=== PATIENT | male | born 1930 | race Caucasian/White ===

== ENCOUNTER 2017-10-31 19:17 | Emergency (ER) | END 2017-10-31 22:19 | disposition home or self-care (01) ==

== ENCOUNTER 2017-12-05 13:02 | Emergency (ER) | END 2017-12-05 19:38 | disposition home or self-care (01) ==

== ENCOUNTER 2017-12-13 10:37 | Inpatient (IN) | END 2017-12-24 18:05 | disposition home health service (06) | DRG 607 ==

== ENCOUNTER 2018-04-18 14:52 | Inpatient (IN) | END 2018-04-23 18:30 | disposition home health service (06) | DRG 204 ==

== ENCOUNTER 2019-01-16 10:33 | Inpatient (IN) | payer MEDICARE, BC ==
[~2019-01-16] VITALS: Ht 180.3 cm; Wt 85.5 kg
[~2019-01-16 10:33] MED LIST: ATOR40TA68 PO; LOPE2CAP PO; MYCO500T PO; PANT40TA3 PO; PRED5TAB PO; WHEA1POW8 PO
[2019-01-16] MEDS ORDERED: SODIUM CHLORIDE 0.9% 1L BAG IV* STA (10:41)
[2019-01-16] MEDS ORDERED: ACETAMINOPHEN 325 MG TAB PO STA (10:41)
[2019-01-16] MEDS ORDERED: CEFEPIME 2GM/50 ML (PMX) 50 ML IVPB STA (10:41)
[2019-01-16] MEDS ORDERED: VANCOMYCIN 1 GM (PMX) 250 ML IVPB ONE (11:00)
[2019-01-16] MEDS ORDERED: ATOR40TA68 PO (11:25)
[2019-01-16] MEDS ORDERED: LOPE-123 PO (11:25)
[2019-01-16] MEDS ORDERED: MYCO500T PO (11:27)
[2019-01-16] MEDS ORDERED: PRED5TAB PO (11:27)
[2019-01-16] MEDS ORDERED: PANT40TA4 PO (11:28)
[2019-01-16] MEDS ORDERED: IBUPROFEN 800 MG TAB PO ONE (11:30)
[2019-01-16] MEDS ORDERED: ONDANSETRON 4 MG INJ IV PRN ×2 (14:30→16:30)
--- NOTE | 2019-01-16 14:45 | ERD ---
ER Documentation Chief Complaint Chief Complaint VISHNU FROM HOME D/T TREMBLING W/ ONSET 20 MINUTES AGO HPI This is an 88-year-old male with a past medical history of bladder carcinoma, urethral transitional cell cancer, hypertension, coronary artery disease. The patient has a history of psoriatic arthritis. The patient has a history of chronic renal failure but is not on dialysis. He has had a history of small bowel angiodysplasias that were treated with push enteroscopy at [facility]. The patient had a colostomy bag since 2006. The patient presents to the emergency department today as he states he had a tactile fever with shaking and chills just prior to arrival. He denies a productive or nonproductive cough . He has no chest pain. He has no shortness of breath at rest or exertion. He does have a left-sided urethral stent in place and his urologist is Dr. Gramajo. He indicates he is currently waiting to have this removed. The stent has been placed since November 2018. The patient has not been on any recent antibiotics. He denies any abdominal pain. He has no shortness of breath at rest or exertion. He did not take any antipyretics prior to arrival. The patient also has known history of anemia of chronic disease and has been undergoing iron supplementation. He denies any hemoptysis hematemesis or melanotic stools. He states that tactile fever shaking chills occurred roughly 20 minutes prior to arrival. ROS All systems reviewed and are negative except as per history of present illness. Medications Home Meds Reported Medications Pantoprazole* (Pantoprazole*) 40 Mg Tablet.dr, 40 MG PO AC BREAKFAST, TAB 01/16/19 Prednisone* (Prednisone*) 5 Mg Tab, 5 MG PO DAILY, TAB 01/16/19 Mycophenolate Mofetil* (Cellcept*) 500 Mg Tablet, 500 MG PO TID, #60 TAB 01/16/19 Atorvastatin* (Atorvastatin*) 40 Mg Tablet, 40 MG PO QHS, #30 TAB 01/16/19 Loperamide Hcl* (Loperamide Hcl*) 2 Mg Cap, 2 MG PO NEEDED, CAP WITH EACH DIARRHEA,PRN 01/16/19 Discontinued Reported Medications Loperamide Hcl* (Imodium*) 2 Mg Capsule, 2 MG PO .WITH EACH DIARRHEA PRN for DIARRHEA, CAP MAX 16 mg/day 04/18/18 Wheat Dextrin (Benefiber) 1 Each Powd.pack, 1 EACH PO QAM 04/18/18 Mycophenolate Mofetil* (Cellcept*) 500 Mg Tablet, 500 MG PO TID, #60 TAB 1 HR BEFORE BREAKFAST 2 HRS AFTER BREAKFAST 1 HR BEFORE OR AFTER DINNER 04/18/18 Pantoprazole* (Protonix*) 40 Mg Tablet.dr, 40 MG PO DAILY, TAB 04/18/18 Prednisone* (Prednisone*) 5 Mg Tab, 5 MG PO DAILY, TAB 12/11/17 Atorvastatin* (Atorvastatin*) 40 Mg Tablet, 40 MG PO QHS, #30 TAB 12/11/17 Allergies Allergies: Coded Allergies: acetaminophen (Unverified Allergy, Unknown, 01/16/19) hydrocodone (Unverified Allergy, Unknown, 01/16/19) hydromorphone HCl (Verified Adverse Reaction, Mild, BECAME CRAZY AND MEAN, 01/16/19) PMhx/Soc History of Surgery: Yes Anesthesia Reaction: No Hx Neurological Disorder: No Hx Respiratory Disorders: No Hx Cardiac Disorders: Yes (STENT PLACMENT 2014) Hx Psychiatric Problems: No Hx Miscellaneous Medical Probl: Yes (CA COLON, METASTAZIDE) Hx Alcohol Use: No Hx Substance Use: No Hx Tobacco Use: No Smoking Status: Never smoker Physical Exam Vitals Vital Signs Date Temp Pulse Resp B/P (MAP) Pulse Ox O2 O2 Flow FiO2 Time Delivery Rate 01/16/19 101.9 98 18 98/60 (73) 98 Room Air 13:51 01/16/19 103.0 11:55 01/16/19 Nasal 2 11:17 Cannula 01/16/19 103.0 10:55 01/16/19 103.6 90 16 170/76 99 10:36 (107) Physical Exam Constitutional:Well-developed. Well-nourished. HEENT:Normocephalic. Atraumatic.Pupils were equal round reactive to light. Moist mucous membranes.No tonsillar exudates. Neck: No nuchal rigidity. No lymphadenopathy. No posterior cervical spine tenderness or step-offs. Respiratory: Not using accessory muscles of respiration.Lungs were clear to auscultation bilaterally. No rhonchi. No rales. No wheezing. Cardiovascular: Regular rate regular rhythm.No murmurs. No rubs were appreciated.S1, S2 normal. Distal pulses are palpable 2+ bilaterally. GI: Abdomen was soft. Nontender. Colostomy bag present with mild surrounding erythremia over the abdominal wall around the colostomy site but no tenderness no fluctuance no induration. Non Distended. No pulsatile abdominal masses or bruits. No rebound. No guarding. Bowel sounds were present and normal. Muscle skeletal: Full range of motion of both the upper and lower extremities bilaterally.Normal muscle tone.No assymetrical calf tenderness or swelling. Skin: No petechia, no purpura. No lesions on the palms or the soles of the feet. No maculopapular rash. NEURO: Patient was alert, awake, orientated x3.No facial droop. Gait observed and normal with no ataxia.Speech had regular rate and rhythm. No focal neurological deficits. Result Diagram: 01/16/19 1100 01/16/19 1100 Results 24 hrs Laboratory Tests Test 01/16/19 10:53 01/16/19 11:00 01/16/19 13:21 POC Venous Lactate 5.0 mmol/L White Blood Count 4.7 10^3/ul Red Blood Count 3.18 10^6/ul Hemoglobin 10.1 g/dl Hematocrit 33.4 % Mean Corpuscular Volume 105.0 fl Mean Corpuscular Hemoglobin 31.8 pg Mean Corpuscular 30.2 g/dl Hemoglobin Concent Red Cell Distribution Width 17.2 % Platelet Count 327 10^3/UL Mean Platelet Volume 9.6 fl Immature Granulocytes % 0.600 % Neutrophils % 92.2 % Lymphocytes % 5.5 % Monocytes % 0.9 % Eosinophils % 0.4 % Basophils % 0.4 % Nucleated Red Blood Cells % 0.4 /100WBC Immature Granulocytes # 0.030 10^3/ul Neutrophils # 4.3 10^3/ul Lymphocytes # 0.3 10^3/ul Monocytes # 0.0 10^3/ul Eosinophils # 0.0 10^3/ul Basophils # 0.0 10^3/ul Nucleated Red Blood Cells # 0.0 10^3/ul Prothrombin Time 15.8 Sec Prothrombin Time Ratio 1.2 INR International 1.25 Normalized Ratio Activated Partial Thromboplast 20.7 Sec Time Sodium Level 142 mmol/L Potassium Level 4.5 mmol/L Chloride Level 113 mmol/L Carbon Dioxide Level 16 mmol/L Anion Gap 13 Blood Urea Nitrogen 44 mg/dl Creatinine 3.48 mg/dl Est Glomerular Filtrat mL/min Rate mL/min Glucose Level 129 mg/dl Calcium Level 8.9 mg/dl Total Bilirubin 0.5 mg/dl Direct Bilirubin 0.00 mg/dl Indirect Bilirubin 0.5 mg/dl Aspartate Amino 21 IU/L Transf (AST/SGOT) Alanine 10 IU/L Aminotransferase (ALT/SGPT) Alkaline Phosphatase 59 IU/L Troponin I 0.030 ng/ml Total Protein 6.9 g/dl Albumin 3.8 g/dl Globulin 3.10 g/dl Albumin/Globulin Ratio 1.22 Amylase Level 99 U/L Lipase 116 U/L Urine Color RED Urine Clarity CLOUDY Urine pH 6.0 Urine Specific [place] 1.013 Urine Ketones NEGATIVE mg/dL Urine Nitrite NEGATIVE mg/dL Urine Bilirubin NEGATIVE mg/dL Urine Urobilinogen NEGATIVE mg/dL Urine Leukocyte Esterase 1+ Leo/ul Urine Microscopic RBC > 182 /HPF Urine Microscopic WBC 102 /HPF Urine Hemoglobin 3+ mg/dL Urine Glucose NEGATIVE mg/dL Urine Total Protein 2+ mg/dl Current Medications Medications Dose Sig/Shilpi Start Time Status Last (Trade) Ordered Route PRN Stop Time Admin Dose Reason Admin Sodium 3,300 ml BOLUS OVER 2 01/16/19 DC 01/16/19 Chloride HOURS STAT 10:41 11:07 (NS) IV* 01/16/19 10:43 650 mg ONCE STAT 01/16/19 DC 01/16/19 Acetaminophen PO 10:41 10:55 (Tylenol 01/16/19 10:43 Tab) Cefepime HCl 50 ml @ ONCE STAT 01/16/19 DC 01/16/19 100 mls/hr IVPB 10:41 11:07 01/16/19 11:10 Vancomycin 250 ml @ ONCE ONCE 01/16/19 DC 01/16/19 HCl 125 mls/hr IVPB 11:00 11:55 01/16/19 12:59 Ibuprofen 800 mg ONCE ONCE 01/16/19 DC 01/16/19 (Motrin) PO 11:30 11:55 01/16/19 11:31 Ondansetron 4 mg ER BRIDGE 01/16/19 HCl (Zofran PRN IV 14:30 Inj) NAUSEA/VOMITI 01/17/19 14:29 NG Sodium 1,000 ml @ Q1H STAT 01/16/19 Chloride 1,000 mls/hr IV 14:46 01/16/19 15:45 Procedures/MDM This patient presented to the emergency department febrile with fever shaking and chills. The patient was admitted placed on athletic monitor continuous pulse oximetry IV access was established by nursing to. Patient's infectious symptoms have not stabilized and the patient is at risk of rapid decompensation. The patient will be admitted for careful hydration, antibiotic therapy, and infectious source control. Severe Sepsis Assessment: Infectious Source: Pyleonephritis End organ damage indicated by: Lactate > 2.0 mmol/L Supply Planner > 2.0 Severe Sepsis Managment: Blood Cultures X 2 before broad spectrum antibiotics initiated within 3 hours of recognition. 30 ml/kg NS bolus Completed Initial Lactate: 5.0 Repeat Lactate pending Septic Shock Assessment (1 hour post 30 ml/kg fluid bolus): Hypotension (SBP < 90 or 40 mmHg drop, MAP < 65): No Lactic acid > 4.0 Yes Perfusion Reassessment for Septic Shock: Temp 101.9, Pulse 98, RR 18, BP 98/60 Heart Exam: Normal Lung Exam: No Crackles Capillary Refill: Normal Peripheral Pulses: Radially present Skin: Normal I considered further perfusion assessment with CVP measurement, SCVO2, bedside ultrasound volume assessment, passive leg raise, trial of further fluid bolus. And preceded with IV fluids. 12 Lead EKG tracing ordered and reviewed by myself showed: Sinus tachycardia 106 bpm and no arrhythmia. NC interval normal. QRS duration normal. No ST segment elevation No ST segment depression. No changes consistent with acute ischemia. The patient has been seen and evaluated previously in the emergency department by his primary care's physician Dr. Calix. Multiple calls were placed however were unable to get hold of Dr. White. Therefore the patient will be admitted to the hospitalist. Patient will go to the telemetry service in serious condition. I will place a call to Dr. Harrison to see if he be willing to be consulted on the case. Critical Care: Time: 65 minutes Treatments/Evaluations: Close monitoring and treatment of unstable vital signs, cardiorespiratory, and neurologic status, while maintaining tight balance of fluid, respiratory, and cardiac interventions. Time does not include performing any of the above billable procedures. Departure Diagnosis: Primary Impression: Severe sepsis Additional Impression: Retained urethral stent Condition: Serious Comments Addendum: Time: 15:00. Case discussed with Dr. Schilling. Will admit to telemetry for Dr. Calix. BISHOP WU MD Jan 16, 2019 14:36 YARELY RIOS MD Jan 16, 2019 15:02
[2019-01-16] MEDS ORDERED: SOD CHLORIDE 0.9% 1,000 ML IV STA (14:46)
[2019-01-16 16:15] VITALS: BP 100/51; PULSE 104; RESP 18
[2019-01-16 16:27] VITALS: Ht 180.3 cm; Wt 85.5 kg
[2019-01-16] MEDS ORDERED: MAGNESIUM HYDROXIDE 30ML CUP PO PRN (16:30)
[2019-01-16] MEDS ORDERED: ZOLPIDEM 5 MG TAB PO PRN (16:30)
[2019-01-16] MEDS ORDERED: NACL 0.9% 3 ML SYG IV SCH (16:30)
[2019-01-16] MEDS ORDERED: IBUPROFEN 400 MG TAB PO PRN (16:30)
[2019-01-16] MEDS ORDERED: LOPERAMIDE 2 MG CAP PO PRN (16:30)
[2019-01-16] MEDS ORDERED: VANCOMYCIN 500 MG (PMX) 100 ML IVPB SCH (18:30)
[2019-01-16] MEDS ORDERED: VANCOMYCIN IV PER PHARMACY XX SCH (18:30)
[2019-01-16] MEDS: SOD CHLORIDE 0.9% 1,000 ML IV SCH (18:31)
[2019-01-16 19:51] VITALS: BP 116/60; PULSE 99; RESP 20
[2019-01-16 20:30] VITALS: PULSE 96
[2019-01-16] MEDS ORDERED: NITROFURANTOIN (SR) 100 MG CAP PO SCH (21:00)
[2019-01-16] MEDS: FAMOTIDINE 20 MG INJ IV SCH (21:34)
[2019-01-16] MEDS: CLOTRIMAZOLE 1% 30 GM CR TOP SCH (21:34)
[2019-01-16] MEDS: MYCOPHENOLATE 250 MG CAP PO SCH (21:35)
[2019-01-16] MEDS: ATORVASTATIN 40 MG TAB PO SCH (21:36)
--- NOTE | 2019-01-16 23:02 | HP ---
DATE OF ADMISSION: 01/16/2019 REQUESTING PHYSICIAN: Dr. Schilling REASON FOR CONSULTATION: History of bladder tumor and left ureteral JJ stent. HISTORY OF PRESENT ILLNESS: This is an 88-year-old male who presented to [facility] with a fever of 103 and chills. The patient is known to have a history of bladder cancer and has undergone resection of this cancer and also it appears he may have had obstruction of his left ureter and had a JJ stent put in about [address] Gramajo. The patient was supposed to go and see Dr. Gramajo to undergo a cystoscopy and removal of the stent. The patient's other medical problems include a history of hypertension, history of coronary artery disease status post stent. Patient does have a history of psoriatic arthritis, history of chronic kidney disease stage IV, but It appears his kidney function has improved. Also, he has had a history of colostomy and has a skin problem. 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 He also does have a history of anemia. He still is able to urinate on his own and his urine is clear. He denies any dysuria or gross hematuria. Upon admission to the hospital, he underwent a CT scan of the abdomen and pelvis and that showed that he does have mild left hydroureter and hydronephrosis with a double-J ureteral stent. There is left renal cyst and atrophic left kidney. 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 He does have a 5 cm focal fluid collection interposed between the left ischial tuberosity and the gluteus muscle without bony destruction, question ischial gluteal bursitis, abscess cannot be ruled out. ALLERGIES: 1. ACETAMINOPHEN. 2. HYDROCODONE. 3. HYDROMORPHONE. PAST MEDICAL HISTORY: He has had a skin disease problem and has been to a congressional assistant and was treated for that. He does have a colostomy from bowel resection. PHYSICAL EXAMINATION: GENERAL: Reveals an elderly male. VITAL SIGNS: Temperature is now 100.8, on admission it was 103.0. The blood pressure 105/60, respiration 20, pulse rate is 98. HEAD AND NECK: Unremarkable. CHEST: Clear. ABDOMEN: Soft. There is no abdominal mass palpable. The patient does have a colostomy and he does have a lot of skin rash on his abdomen. GENITALIA: The glans penis is red and consistent with balanitis LABORATORY DATA: CBC shows a white count of 4.7, hemoglobin 10.1, hematocrit 33.4. The BUN is 44, creatinine 3.48. The urinalysis is 1+ leukocyte esterase, 182 per high-power field red cells, and 102 white cells per high power-field as well. IMPRESSION: History of bladder tumor and left ureteral JJ stent Balanitis, Urinary tract infection,possible bacteremia Plan: Blood and urine cultures ,Lotrimin cream on the balanitis, IV antibiotics. Once The UTI is cleared then he may go and see Dr Gramajo to manage his JJ stent Dictated By: ALEX ROBLERO/EDUARDO Conf#: [id number] DID#: [id number] MTDD
[2019-01-16 23:50] VITALS: BP 114/64; PULSE 91; RESP 20
[2019-01-17] MEDS: SOD CHLORIDE 0.9% 1,000 ML IV SCH ×3 (05:50→23:29)
[2019-01-17 08:27] VITALS: BP 115/61; PULSE 104; RESP 16
[2019-01-17] MEDS ORDERED: predniSONE 5 MG TAB PO SCH (09:00)
[2019-01-17] MEDS: MYCOPHENOLATE 250 MG CAP PO SCH ×3 (09:06→17:02)
[2019-01-17] MEDS: CLOTRIMAZOLE 1% 30 GM CR TOP SCH ×2 (09:06→20:49)
[2019-01-17 12:04] VITALS: BP 114/66; PULSE 107; RESP 18
[2019-01-17 15:35] VITALS: BP 108/61; PULSE 110; RESP 16
[2019-01-17] MEDS: predniSONE 5 MG TAB PO SCH (17:02)
--- NOTE | 2019-01-17 17:03 | HP ---
Date/Time of Note Date/Time of Note DATE: 01/17/19 TIME: 16:46 Assessment/Plan VTE [place] [facility] [place]: 6 [place] [facility] [place] SCD contraindicated: other Pharmacological prophylaxis: other Pharm contraindication: other Lines/Catheters [facility] Sal[place] Central line still needed: No Urinary Cath still in place: No Assessment/Plan Problems: (1) Severe sepsis Status: Acute Comment: IV antibiotics. Hydration. Follow up on cultures. (2) Ureter obstruction Status: Acute Comment: Possible stent obstruction. Appreciate Dr. Harrison participation in this case. Result Diagram: 01/17/19 0743 01/17/19 0743 Results 24hrs Laboratory Tests Test 01/16/19 18:42 01/17/19 07:43 Lactic Acid Level 1.6 White Blood Count 15.3 #H Red Blood Count 3.13 L Hemoglobin 9.8 L Hematocrit 33.8 L Mean Corpuscular Volume 108.0 H Mean Corpuscular Hemoglobin 31.3 Mean Corpuscular Hemoglobin Concent 29.0 L Red Cell Distribution Width 17.5 H Platelet Count 279 Mean Platelet Volume 10.6 H Immature Granulocytes % 0.500 H Neutrophils % 90.0 H Lymphocytes % 2.2 L Monocytes % 6.1 Eosinophils % 0.8 Basophils % 0.4 Nucleated Red Blood Cells % 0.0 Immature Granulocytes # 0.080 H Neutrophils # 13.8 H Lymphocytes # 0.3 L Monocytes # 0.9 Eosinophils # 0.1 Basophils # 0.1 Nucleated Red Blood Cells # 0.0 Sodium Level 141 Potassium Level 4.5 Chloride Level 118 H Carbon Dioxide Level 15 L Anion Gap 8 Blood Urea Nitrogen 44 H Creatinine 2.95 H Est Glomerular Filtrat Rate mL/min Glucose Level 84 # Calcium Level 8.4 Total Bilirubin 0.5 Direct Bilirubin 0.00 Indirect Bilirubin 0.5 Aspartate Amino Transf (AST/SGOT) 21 Alanine Aminotransferase (ALT/SGPT) 17 Alkaline Phosphatase 47 Total Protein 5.7 #L Albumin 2.9 L Globulin 2.80 Albumin/Globulin Ratio 1.03 HPI/ROS Admit Date/Time Admit Date/Time Jan 16, 2019 at 15:46 Hx of Present Illness 88 year old man in usual state of health began to experience sudden onset of rigors.Brought in to [facility] by ambulance. Found to have a temperature of 103 Fahrenheit. Blood and urine cultures sent. Started on IV antibiotics. Imaging of kidney showing a possibly obstructed stent with hydroureternephrosis. admitted to telemetry for urosepsis with ureter/stent obstruction PMH/Family/Social Past Medical History SOCIAL HISTORY: The patient has been a cigarette smoker up until the last few years when he has probably mostly stopped. 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 He does not drink alcohol. The patient was born in [place]. He is and there are 2 grown children. Medical History: cancer (bladder, transitional urethral carcinoma, perianal melanoma), congestive heart failure, coronary artery disease, GI bleed, high ch olesterol, renal disease (nephrolithiasis), other (rheumatoid arthritis, autoimmune bullous disease of the skin) Medications Current Medications Sodium Chloride 1,000 ml @ 75 mls/hr [id number] IV Last administered on 01/17/19at 09:06; Admin Dose 75 MLS/HR; Start 01/16/19 at 16:30 IV Flush (NS 3 ml) 3 ml PER PROTOCOL IV ; Start 01/16/19 at 16:30 Ondansetron HCl (Zofran Inj) 4 mg Q6H PRN IV NAUSEA/VOMITING; Start 01/16/19 at 16:30 Zolpidem Tartrate (Ambien) 5 mg QHS PRN PO .INSOMNIA; Start 01/16/19 at 16:30 Magnesium Hydroxide (Milk Of Mag) 30 ml DAILY PRN PO .CONSTIPATION; Start 01/16/19 at 16:30 Famotidine (Pepcid Iv) 20 mg Q24H IV Last administered on 01/16/19at 21:34; Admin Dose 20 MG; Start 01/16/19 at 21:00 Ibuprofen (Motrin) 400 mg Q6H PRN PO MILD PAIN(1-3) OR TEMP>38C; Start 01/16/19 at 16:30 Atorvastatin Calcium (Lipitor) 40 mg QHS PO Last administered on 01/16/19at 21:36; Admin Dose 40 MG; Start 01/16/19 at 21:00 Loperamide HCl (Imodium Cap) 2 mg ONCE PRN PO diarrhea; Start 01/16/19 at 16:30 Mycophenolate Mofetil (Cellcept) 500 mg TID PO Last administered on 01/17/19at 12:05; Admin Dose 500 MG; Start 01/16/19 at 21:00 Clotrimazole (Lotrimin Cr) 1 applic BID TOP Last administered on 01/17/19at 09:06; Admin Dose 1 APPLIC; Start 01/16/19 at 21:00 Vancomycin HCl (Vanco Iv Per Pharmacy) PER PHARMACY DOSING NOTE XX ; Start 01/16/19 at 18:30 Miscellaneous Information (*Rx Drug Level Order Reminder*) VANCO RANDOM @ 0,500 0500 ONCE XX ; Start 01/18/19 at 05:00; Stop 01/18/19 at 05:01 Prednisone (Prednisone) 5 mg DAILY PO ; Start 01/17/19 at 14:01 Coded Allergies: acetaminophen (Unverified Allergy, Unknown, 01/16/19) hydrocodone (Unverified Allergy, Unknown, 01/16/19) hydromorphone HCl (Verified Adverse Reaction, Mild, BECAME CRAZY AND MEAN, 01/16/19) Past Surgical History Past Surgical Hx: angioplasty, bowel resection, other (deviated septum repair, knee replacement, TURP) Family History Significant Family History: no pertinent family hx Social History with 2 grown children. Retired contractor from [place] Alcohol Use: none Smoking Status: Former smoker Drug Use: none Exam/Review of Systems Vital Signs Vitals Vital Signs Date Temp Pulse Resp B/P (MAP) Pulse Ox O2 O2 Flow FiO2 Time Delivery Rate 01/17/19 98.6 110 16 108/61 100 Room Air 15:35 (77) 01/16/19 2 11:17 Intake and Output 01/16/19 01/16/19 01/17/19 1515:00 23:00 07:00 IntakeIntake Total 250 ml OutputOutput Total 200 ml 300 ml BalanceBalance -200 ml -50 ml Exam Constitutional: alert, oriented, well developed Head: normocephalic Eyes: nl conjunctiva, EOMI, PERRL Neck: supple Respiratory: clear to auscultation, normal air movement Cardiovascular: regular rate and rhythm Gastrointestinal: soft, other (colostomy) Genitourinary - Male: nl penis, other (erythema ) Musculoskeletal: nl extremities to inspection Extremities: normal pulses Skin: other (plaques of erythema and hypopigmentation) SHERIF DAMON MD Jan 17, 2019 16:58
[2019-01-17 19:43] VITALS: BP 110/57; PULSE 110; RESP 20
--- NOTE | 2019-01-17 20:22 | CONS ---
Consult Date/Type/Reason Admit Date/Time Jan 16, 2019 at 15:46 Initial Consult Date January 16, 2019 Type of Consultation: Urology Reason for Consultation History of bladder tumor and insertion of left ureteral JJ stent. Patient came in with fever and chills Requesting Provider: SHERIF DAMON MD Date/Time of Note DATE: 01/17/19 TIME: 20:17 Subjective Patient feels better today. He has no chills and his temperature maximum is 99.1. Objective Vitals Vital Signs Date Temp Pulse Resp B/P (MAP) Pulse Ox O2 O2 Flow FiO2 Time Delivery Rate 01/17/19 99.1 110 20 110/57 97 19:43 (74) 01/17/19 Room Air 15:35 01/16/19 2 11:17 Intake and Output 01/16/19 01/16/19 01/17/19 1515:00 23:00 07:00 IntakeIntake Total 250 ml OutputOutput Total 200 ml 300 ml BalanceBalance -200 ml -50 ml Exam Patient does have colostomy and redness around it. The balanitis is better. He is using the Lotrimin cream on it. Blood cultures came back positive with gram- positive cocci. Patient is on vancomycin Results/Medications Result Diagram: 01/17/19 0743 01/17/19 0743 Results 24 hrs Laboratory Tests Test 01/17/19 07:43 White Blood Count 15.3 #H Red Blood Count 3.13 L Hemoglobin 9.8 L Hematocrit 33.8 L Mean Corpuscular Volume 108.0 H Mean Corpuscular Hemoglobin 31.3 Mean Corpuscular Hemoglobin Concent 29.0 L Red Cell Distribution Width 17.5 H Platelet Count 279 Mean Platelet Volume 10.6 H Immature Granulocytes % 0.500 H Neutrophils % 90.0 H Lymphocytes % 2.2 L Monocytes % 6.1 Eosinophils % 0.8 Basophils % 0.4 Nucleated Red Blood Cells % 0.0 Immature Granulocytes # 0.080 H Neutrophils # 13.8 H Lymphocytes # 0.3 L Monocytes # 0.9 Eosinophils # 0.1 Basophils # 0.1 Nucleated Red Blood Cells # 0.0 Sodium Level 141 Potassium Level 4.5 Chloride Level 118 H Carbon Dioxide Level 15 L Anion Gap 8 Blood Urea Nitrogen 44 H Creatinine 2.95 H Est Glomerular Filtrat Rate mL/min Glucose Level 84 # Calcium Level 8.4 Total Bilirubin 0.5 Direct Bilirubin 0.00 Indirect Bilirubin 0.5 Aspartate Amino Transf (AST/SGOT) 21 Alanine Aminotransferase (ALT/SGPT) 17 Alkaline Phosphatase 47 Total Protein 5.7 #L Albumin 2.9 L Globulin 2.80 Albumin/Globulin Ratio 1.03 Home Meds Reported Medications Pantoprazole* (Pantoprazole*) 40 Mg Tablet.dr, 40 MG PO AC BREAKFAST, TAB 01/16/19 Prednisone* (Prednisone*) 5 Mg Tab, 5 MG PO DAILY, TAB 01/16/19 Mycophenolate Mofetil* (Cellcept*) 500 Mg Tablet, 500 MG PO TID, #60 TAB 01/16/19 Atorvastatin* (Atorvastatin*) 40 Mg Tablet, 40 MG PO QHS, #30 TAB 01/16/19 Loperamide Hcl* (Loperamide Hcl*) 2 Mg Cap, 2 MG PO NEEDED, CAP WITH EACH DIARRHEA,PRN 01/16/19 Discontinued Reported Medications Loperamide Hcl* (Imodium*) 2 Mg Capsule, 2 MG PO .WITH EACH DIARRHEA PRN for DIARRHEA, CAP MAX 16 mg/day 04/18/18 Wheat Dextrin (Benefiber) 1 Each Powd.pack, 1 EACH PO QAM 04/18/18 Mycophenolate Mofetil* (Cellcept*) 500 Mg Tablet, 500 MG PO TID, #60 TAB 1 HR BEFORE BREAKFAST 2 HRS AFTER BREAKFAST 1 HR BEFORE OR AFTER DINNER 04/18/18 Pantoprazole* (Protonix*) 40 Mg Tablet.dr, 40 MG PO DAILY, TAB 04/18/18 Prednisone* (Prednisone*) 5 Mg Tab, 5 MG PO DAILY, TAB 12/11/17 Atorvastatin* (Atorvastatin*) 40 Mg Tablet, 40 MG PO QHS, #30 TAB 12/11/17 Medications Current Medications Sodium Chloride 1,000 ml @ 75 mls/hr [id number] IV Last administered on 01/17/19at 09:06; Admin Dose 75 MLS/HR; Start 01/16/19 at 16:30 IV Flush (NS 3 ml) 3 ml PER PROTOCOL IV ; Start 01/16/19 at 16:30 Ondansetron HCl (Zofran Inj) 4 mg Q6H PRN IV NAUSEA/VOMITING; Start 01/16/19 at 16:30 Zolpidem Tartrate (Ambien) 5 mg QHS PRN PO .INSOMNIA; Start 01/16/19 at 16:30 Magnesium Hydroxide (Milk Of Mag) 30 ml DAILY PRN PO .CONSTIPATION; Start 01/16/19 at 16:30 Famotidine (Pepcid Iv) 20 mg Q24H IV Last administered on 01/16/19at 21:34; Admin Dose 20 MG; Start 01/16/19 at 21:00 Ibuprofen (Motrin) 400 mg Q6H PRN PO MILD PAIN(1-3) OR TEMP>38C; Start 01/16/19 at 16:30 Atorvastatin Calcium (Lipitor) 40 mg QHS PO Last administered on 01/16/19at 21:36; Admin Dose 40 MG; Start 01/16/19 at 21:00 Loperamide HCl (Imodium Cap) 2 mg ONCE PRN PO diarrhea; Start 01/16/19 at 16:30 Mycophenolate Mofetil (Cellcept) 500 mg TID PO Last administered on 01/17/19at 17:02; Admin Dose 500 MG; Start 01/16/19 at 21:00 Clotrimazole (Lotrimin Cr) 1 applic BID TOP Last administered on 01/17/19at 09:06; Admin Dose 1 APPLIC; Start 01/16/19 at 21:00 Vancomycin HCl (Vanco Iv Per Pharmacy) PER PHARMACY DOSING NOTE XX ; Start 01/16/19 at 18:30 Miscellaneous Information (*Rx Drug Level Order Reminder*) VANCO RANDOM @ 0,500 0500 ONCE XX ; Start 01/18/19 at 05:00; Stop 01/18/19 at 05:01 Prednisone (Prednisone) 5 mg DAILY PO Last administered on 01/17/19at 17:02; Admin Dose 5 MG; Start 01/17/19 at 14:01 Assessment/Plan Hospital Course (Demo Recall) 88-year-old male presented to the hospital with chills and fever of 103. He does have a history of bladder tumor status post resection and insertion of left ureteral JJ stent. His blood culture did grow gram-positive cocci. The patient is on vancomycin. He is feeling better and he is voiding well. His urine is clear. His white count did go up to 15.3 and that is because of the sepsis. His creatinine has improved and came down to 2.95 from 3.48 For now we shall continue the vancomycin pending the result of the urine culture and the sensitivity on the blood culture. Continue the Lotrimin cream on the balanitis. ALEX PARR MD Jan 17, 2019 20:22
[2019-01-17] MEDS: FAMOTIDINE 20 MG INJ IV SCH (20:49)
[2019-01-17] MEDS: ATORVASTATIN 40 MG TAB PO SCH (20:49)
[2019-01-18 00:21] VITALS: BP 113/68; PULSE 102; RESP 20
[2019-01-18 04:10] VITALS: BP 125/76; PULSE 109; RESP 21
[2019-01-18 07:28] VITALS: BP 127/75; PULSE 100; RESP 18
[2019-01-18] MEDS: predniSONE 5 MG TAB PO SCH (09:23)
[2019-01-18] MEDS: MYCOPHENOLATE 250 MG CAP PO SCH ×3 (09:23→20:27)
[2019-01-18] MEDS: CLOTRIMAZOLE 1% 30 GM CR TOP SCH ×2 (09:23→20:27)
[2019-01-18] MEDS ORDERED: VANCOMYCIN HCL 1.5 GM in SOD CHLORIDE 0.9% 250 ML IVPB ONE (11:00)
[2019-01-18 11:55] VITALS: BP 144/83; PULSE 110; RESP 18
--- NOTE | 2019-01-18 13:09 | PN ---
Date/Time of Note Date/Time of Note DATE: 01/18/19 TIME: 13:01 Assessment/Plan VTE Prophylaxis Risk score (from Ns)>0 risk: 5 SCD applied (from Ns): No SCD contraindicated: patient refusal (j stent in place, recent massive gi bled) Pharmacological prophylaxis: NA/contraindicated Pharm contraindication: low risk/ambulating Lines/Catheters IV C[facility]ter Type (from [facility]): Peripheral IV Urinary Cath still in place: No Assessment/Plan Result Diagram: 01/17/19 0743 01/17/19 0743 Results 24hrs Laboratory Tests Test 01/18/19 05:11 Random Vancomycin Level 6.4 Subjective 24 Hr Interval Summary Free Text/Dictation 88 yr old man with multiple medical problems. presented with fever chills, some recal discomfort. wbc is up, chr anemia.cultures poss staph in blood, urine no infection. 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 ct findings noted, no pain over ischial area. await culture results. will ask dr jeong to see him Constitutional: improved Exam/Review of Systems Exam Vitals Vital Signs Date Temp Pulse Resp B/P (MAP) Pulse Ox O2 O2 Flow FiO2 Time Delivery Rate 01/18/19 98.0 110 18 144/83 98 11:55 (103) 01/17/19 Room Air 15:35 01/16/19 2 11:17 Intake and Output 01/17/19 01/17/19 01/18/19 1515:00 23:00 07:00 IntakeIntake Total 560 ml 480 ml 1150 ml OutputOutput Total 700 ml 350 ml BalanceBalance 560 ml -220 ml 800 ml Results Results 24hrs Laboratory Tests Test 01/18/19 05:11 Random Vancomycin Level 6.4 Medications Medication Current Medications Sodium Chloride 1,000 ml @ 75 mls/hr [id number] IV Last administered on 01/17/19 23:29; Admin Dose 75 MLS/HR; Start 01/16/19 at 16:30 IV Flush (NS 3 ml) 3 ml PER PROTOCOL IV ; Start 01/16/19 at 16:30 Ondansetron HCl (Zofran Inj) 4 mg Q6H PRN IV NAUSEA/VOMITING; Start 01/16/19 at 16:30 Zolpidem Tartrate (Ambien) 5 mg QHS PRN PO .INSOMNIA; Start 01/16/19 at 16:30 Magnesium Hydroxide (Milk Of Mag) 30 ml DAILY PRN PO .CONSTIPATION; Start 01/16/19 at 16:30 Famotidine (Pepcid Iv) 20 mg Q24H IV Last administered on 01/17/19 20:49; Admin Dose 20 MG; Start 01/16/19 at 21:00 Ibuprofen (Motrin) 400 mg Q6H PRN PO MILD PAIN(1-3) OR TEMP>38C; Start 01/16/19 at 16:30 Atorvastatin Calcium (Lipitor) 40 mg QHS PO Last administered on 01/17/19 20:49; Admin Dose 40 MG; Start 01/16/19 at 21:00 Loperamide HCl (Imodium Cap) 2 mg ONCE PRN PO diarrhea; Start 01/16/19 at 16:30 Mycophenolate Mofetil (Cellcept) 500 mg TID PO Last administered on 01/18/19 12:25; Admin Dose 500 MG; Start 01/16/19 at 21:00 Clotrimazole (Lotrimin Cr) 1 applic BID TOP Last administered on 01/18/19 09:23; Admin Dose 1 APPLIC; Start 01/16/19 at 21:00 Vancomycin HCl (Vanco Iv Per Pharmacy) PER PHARMACY DOSING NOTE XX ; Start 01/16/19 at 18:30 Prednisone (Prednisone) 5 mg DAILY PO Last administered on 01/18/19 09:23; Admin Dose 5 MG; Start 01/17/19 at 14:01 Vancomycin HCl 1.5 gm/Sodium Chloride 250 ml @ 83.333 mls/ hr ONCE ONCE IVPB Last administered on 01/18/19 12:26; Admin Dose 83.333 MLS/HR; Start 01/18/19 at 11:00; Stop 01/18/19 at 13:59 MAIDA WATERS MD 15, 2019 13:09
[2019-01-18 16:15] VITALS: BP 138/79; PULSE 82; RESP 18
--- NOTE | 2019-01-18 19:08 | CONS ---
Consult Date/Type/Reason Admit Date/Time Jan 16, 2019 at 15:46 Initial Consult Date January 16, 2019 Type of Consultation: Urology Reason for Consultation Urinary tract infection, history of bladder tumor and insertion of left ureteral JJ stent Requesting Provider: SHERIF DAMON MD Date/Time of Note DATE: 01/18/19 TIME: 19:03 Subjective Patient is feeling better. He however complains of rectal discharge today with the air coming through the rectum. Objective Vitals Vital Signs Date Temp Pulse Resp B/P (MAP) Pulse Ox O2 O2 Flow FiO2 Time Delivery Rate 01/18/19 98.0 82 18 138/79 98 16:15 (98) 01/17/19 Room Air 15:35 01/16/19 2 11:17 Intake and Output 01/17/19 01/17/19 01/18/19 1515:00 23:00 07:00 IntakeIntake Total 560 ml 480 ml 1150 ml OutputOutput Total 700 ml 350 ml BalanceBalance 560 ml -220 ml 800 ml Exam Colostomy and redness on the abdominal wall. Balanitis is improving. Urine culture showing: STAPHYLOCOCCUS SPECIES <10,000 CFU/ml Results/Medications Result Diagram: 01/17/19 0743 01/17/19 0743 Results 24 hrs Laboratory Tests Test 01/18/19 05:11 Random Vancomycin Level 6.4 Home Meds Reported Medications Pantoprazole* (Pantoprazole*) 40 Mg Tablet.dr, 40 MG PO AC BREAKFAST, TAB 01/16/19 Prednisone* (Prednisone*) 5 Mg Tab, 5 MG PO DAILY, TAB 01/16/19 Mycophenolate Mofetil* (Cellcept*) 500 Mg Tablet, 500 MG PO TID, #60 TAB 01/16/19 Atorvastatin* (Atorvastatin*) 40 Mg Tablet, 40 MG PO QHS, #30 TAB 01/16/19 Loperamide Hcl* (Loperamide Hcl*) 2 Mg Cap, 2 MG PO NEEDED, CAP WITH EACH DIARRHEA,PRN 01/16/19 Discontinued Reported Medications Loperamide Hcl* (Imodium*) 2 Mg Capsule, 2 MG PO .WITH EACH DIARRHEA PRN for DIARRHEA, CAP MAX 16 mg/day 04/18/18 Wheat Dextrin (Benefiber) 1 Each Powd.pack, 1 EACH PO QAM 04/18/18 Mycophenolate Mofetil* (Cellcept*) 500 Mg Tablet, 500 MG PO TID, #60 TAB 1 HR BEFORE BREAKFAST 2 HRS AFTER BREAKFAST 1 HR BEFORE OR AFTER DINNER 04/18/18 Pantoprazole* (Protonix*) 40 Mg Tablet.dr, 40 MG PO DAILY, TAB 04/18/18 Prednisone* (Prednisone*) 5 Mg Tab, 5 MG PO DAILY, TAB 12/11/17 Atorvastatin* (Atorvastatin*) 40 Mg Tablet, 40 MG PO QHS, #30 TAB 12/11/17 Medications Current Medications Sodium Chloride 1,000 ml @ 75 mls/hr [id number] IV Last administered on 01/17/19 23:29; Admin Dose 75 MLS/HR; Start 01/16/19 at 16:30 IV Flush (NS 3 ml) 3 ml PER PROTOCOL IV ; Start 01/16/19 at 16:30 Ondansetron HCl (Zofran Inj) 4 mg Q6H PRN IV NAUSEA/VOMITING; Start 01/16/19 at 16:30 Zolpidem Tartrate (Ambien) 5 mg QHS PRN PO .INSOMNIA; Start 01/16/19 at 16:30 Magnesium Hydroxide (Milk Of Mag) 30 ml DAILY PRN PO .CONSTIPATION; Start 01/16/19 at 16:30 Famotidine (Pepcid Iv) 20 mg Q24H IV Last administered on 01/17/19 20:49; Admin Dose 20 MG; Start 01/16/19 at 21:00 Ibuprofen (Motrin) 400 mg Q6H PRN PO MILD PAIN(1-3) OR TEMP>38C; Start 01/16/19 at 16:30 Atorvastatin Calcium (Lipitor) 40 mg QHS PO Last administered on 01/17/19 20:49; Admin Dose 40 MG; Start 01/16/19 at 21:00 Loperamide HCl (Imodium Cap) 2 mg ONCE PRN PO diarrhea; Start 01/16/19 at 16:30 Mycophenolate Mofetil (Cellcept) 500 mg TID PO Last administered on 01/18/19 12:25; Admin Dose 500 MG; Start 01/16/19 at 21:00 Clotrimazole (Lotrimin Cr) 1 applic BID TOP Last administered on 01/18/19 09:23; Admin Dose 1 APPLIC; Start 01/16/19 at 21:00 Vancomycin HCl (Vanco Iv Per Pharmacy) PER PHARMACY DOSING NOTE XX ; Start 01/16/19 at 18:30 Prednisone (Prednisone) 5 mg DAILY PO Last administered on 01/18/19at 09:23; Admin Dose 5 MG; Start 01/17/19 at 14:01 Assessment/Plan Hospital Course (Demo Recall) 88-year-old male presented to the hospital with chills and fever of 103. He does have a history of bladder tumor status post resection and insertion of left ureteral JJ stent. His blood culture did grow gram-positive cocci and his urine did grow the same. The patient is on vancomycin. He is feeling better and he is voiding well. His urine is clear. He complained today of rectal discharge and feeling of gas coming through the rectum. His white count did go up to 15.3 and that is because of the sepsis. His creatinine has improved and came down to 2.95 from 3.48 For now we shall continue the vancomycin. Continue the clotrimazole for the balanitis. Colorectal surgery consultation. ALEX PARR MD Jan 18, 2019 19:07
[2019-01-18] MEDS: FAMOTIDINE 20 MG INJ IV SCH (20:27)
[2019-01-18] MEDS: ATORVASTATIN 40 MG TAB PO SCH (20:27)
[2019-01-18] MEDS: SOD CHLORIDE 0.9% 1,000 ML IV SCH (20:33)
[2019-01-18 20:39] VITALS: BP 170/76; PULSE 61; RESP 16
[2019-01-19] VITALS (8 sets, daily range): BP systolic 137–172; BP diastolic 63–88; PULSE 54–90; RESP 16–18
[2019-01-19] MEDS: predniSONE 5 MG TAB PO SCH (08:27)
[2019-01-19] MEDS: CLOTRIMAZOLE 1% 30 GM CR TOP SCH ×2 (08:28→20:29)
--- NOTE | 2019-01-19 08:38 | PN ---
Date/Time of Note Date/Time of Note DATE: 01/19/19 TIME: 08:35 Assessment/Plan VTE Prophylaxis Risk score (from [facility]0 risk: 5 SCD applied (from [facility] [place] No SCD contraindicated: low risk/ambulating Pharmacological prophylaxis: heparin Pharm contraindication: low risk/ambulating Lines/Catheters [facility] IV Urinary Cath still in place: No Assessment/Plan Problems: (1) Severe sepsis Status: Acute Comment: He is significantly improved with IV antibiotic therapy. Dosage of vancomycin being guided with our colleagues in pharmacy. Continue treatment. Please note there was staph in the urine however it was a very low colony count less than 10,000 staph epidermidis. Of more concern is that 2 out of 2 blood cultures have staph species in them (2) Psoriatic arthritis Status: Chronic Comment: Continue with CellCept (3) Essential hypertension Status: Chronic Comment: Adequate control at this time (4) Hyperlipidemia Status: Chronic Comment: Continue with statin therapy (5) CKD (chronic kidney disease) stage 3, GFR 30-59 ml/min Status: Chronic Comment: Noted his kidney function was worse on admission but is now improving. (6) Transitional cell carcinoma, bladder Status: Chronic Comment: Stable and he has a left-sided double-J stent. 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 Will check the appropriate labs just to be on the safe side Qualifiers: Chronic kidney disease stage: stage 4 (severe) Qualified Codes: N18.4 - Chronic kidney disease, stage 4 (severe); D63.1 - Anemia in chronic kidney disease Result Diagram: 01/19/19 0520 01/19/19 0520 Results 24hrs Laboratory Tests Test 01/19/19 05:20 White Blood Count 8.7 # Red Blood Count 2.98 L Hemoglobin 9.4 L Hematocrit 31.0 L Mean Corpuscular Volume 104.0 H Mean Corpuscular Hemoglobin 31.5 Mean Corpuscular Hemoglobin Concent 30.3 L Red Cell Distribution Width 16.8 H Platelet Count 231 Mean Platelet Volume 10.5 H Immature Granulocytes % 0.600 H Neutrophils % 78.1 H Lymphocytes % 9.4 L Monocytes % 9.4 Eosinophils % 1.8 Basophils % 0.7 Nucleated Red Blood Cells % 0.3 H Immature Granulocytes # 0.050 H Neutrophils # 6.8 Lymphocytes # 0.8 Monocytes # 0.8 Eosinophils # 0.2 Basophils # 0.1 Nucleated Red Blood Cells # 0.0 Sodium Level 143 Potassium Level 4.4 Chloride Level 120 H Carbon Dioxide Level 15 L Anion Gap 8 Blood Urea Nitrogen 39 H Creatinine 2.83 H Est Glomerular Filtrat Rate mL/min Glucose Level 91 Calcium Level 8.4 Total Bilirubin 0.3 Direct Bilirubin 0.00 Indirect Bilirubin 0.3 Aspartate Amino Transf (AST/SGOT) 20 Alanine Aminotransferase (ALT/SGPT) 23 Alkaline Phosphatase 52 C-Reactive Protein 5.3 H Total Protein 5.6 L Albumin 2.8 L Globulin 2.80 Albumin/Globulin Ratio 1.00 Subjective 24 Hr Interval Summary Free Text/Dictation Patient reports is feeling better is not having any fevers chills or sweats. Constitutional: no complaints Respiratory: no complaints Cardiovascular: no complaints Gastrointestinal: no complaints (Denies abdominal pain. He still is compla ining about perirectal discharge and possibly passing air?) Genitourinary: no complaints Neurologic: no complaints Exam/Review of Systems Exam Vitals Vital Signs Date Temp Pulse Resp B/P (MAP) Pulse Ox O2 O2 Flow FiO2 Time Delivery Rate 01/19/19 98.0 90 18 157/80 98 08:01 (105) 01/19/19 Room Air 04:34 01/16/19 2 11:17 Intake and Output 01/18/19 01/18/19 01/19/19 1515:00 23:00 07:00 IntakeIntake Total 720 ml 360 ml OutputOutput Total 450 ml 800 ml BalanceBalance 270 ml -440 ml Constitutional: alert, oriented Respiratory: clear to auscultation, normal air movement Cardiovascular: regular rate and rhythm, nl pulses Gastrointestinal: soft, nl liver, spleen, non-tender, other (Erythema of the anterior abdominal wall near the colostomy site however this is improved versus prior visits) Genitourinary - Male: other (Modest balanitis) Additional Comments Very rectal erythema, with a split in the skin at the 12 o'clock position Results Results 24hrs Laboratory Tests Test 01/19/19 05:20 White Blood Count 8.7 # Red Blood Count 2.98 L Hemoglobin 9.4 L Hematocrit 31.0 L Mean Corpuscular Volume 104.0 H Mean Corpuscular Hemoglobin 31.5 Mean Corpuscular Hemoglobin Concent 30.3 L Red Cell Distribution Width 16.8 H Platelet Count 231 Mean Platelet Volume 10.5 H Immature Granulocytes % 0.600 H Neutrophils % 78.1 H Lymphocytes % 9.4 L Monocytes % 9.4 Eosinophils % 1.8 Basophils % 0.7 Nucleated Red Blood Cells % 0.3 H Immature Granulocytes # 0.050 H Neutrophils # 6.8 Lymphocytes # 0.8 Monocytes # 0.8 Eosinophils # 0.2 Basophils # 0.1 Nucleated Red Blood Cells # 0.0 Sodium Level 143 Potassium Level 4.4 Chloride Level 120 H Carbon Dioxide Level 15 L Anion Gap 8 Blood Urea Nitrogen 39 H Creatinine 2.83 H Est Glomerular Filtrat Rate mL/min Glucose Level 91 Calcium Level 8.4 Total Bilirubin 0.3 Direct Bilirubin 0.00 Indirect Bilirubin 0.3 Aspartate Amino Transf (AST/SGOT) 20 Alanine Aminotransferase (ALT/SGPT) 23 Alkaline Phosphatase 52 C-Reactive Protein 5.3 H Total Protein 5.6 L Albumin 2.8 L Globulin 2.80 Albumin/Globulin Ratio 1.00 Medications Medication Current Medications Sodium Chloride 1,000 ml @ 75 mls/hr [id number] IV Last administered on 01/18/19at 20:33; Admin Dose 75 MLS/HR; Start 01/16/19 at 16:30 IV Flush (NS 3 ml) 3 ml PER PROTOCOL IV ; Start 01/16/19 at 16:30 Ondansetron HCl (Zofran Inj) 4 mg Q6H PRN IV NAUSEA/VOMITING; Start 01/16/19 at 16:30 Zolpidem Tartrate (Ambien) 5 mg QHS PRN PO .INSOMNIA; Start 01/16/19 at 16:30 Magnesium Hydroxide (Milk Of Mag) 30 ml DAILY PRN PO .CONSTIPATION; Start 01/16/19 at 16:30 Famotidine (Pepcid Iv) 20 mg Q24H IV Last administered on 01/18/19at 20:27; Adm in Dose 20 MG; Start 01/16/19 at 21:00 Ibuprofen (Motrin) 400 mg Q6H PRN PO MILD PAIN(1-3) OR TEMP>38C; Start 01/16/19 at 16:30 Atorvastatin Calcium (Lipitor) 40 mg QHS PO Last administered on 01/18/19 20:27; Admin Dose 40 MG; Start 01/16/19 at 21:00 Loperamide HCl (Imodium Cap) 2 mg ONCE PRN PO diarrhea; Start 01/16/19 at 16:30 Mycophenolate Mofetil (Cellcept) 500 mg TID PO Last administered on 01/18/19at 20:27; Admin Dose 500 MG; Start 01/16/19 at 21:00 Clotrimazole (Lotrimin Cr) 1 applic BID TOP Last administered on 01/19/19 08:28; Admin Dose 1 APPLIC; Start 01/16/19 at 21:00 Vancomycin HCl (Vanco Iv Per Pharmacy) PER PHARMACY DOSING NOTE XX ; Start 01/16/19 at 18:30 Prednisone (Prednisone) 5 mg DAILY PO Last administered on 01/19/19 08:27; Admin Dose 5 MG; Start 01/17/19 at 14:01 JANET HOOPER MD Jan 19, 2019 08:38
[2019-01-19] MEDS: MYCOPHENOLATE 250 MG CAP PO SCH ×3 (09:00→20:27)
[2019-01-19] MEDS: SOD CHLORIDE 0.9% 1,000 ML IV SCH (11:10)
[2019-01-19] MEDS: FLUCONAZOLE 100 MG TAB PO SCH (12:16)
--- NOTE | 2019-01-19 19:28 | CONS ---
Consult Date/Type/Reason Admit Date/Time Jan 16, 2019 at 15:46 Initial Consult Date January 16, 2019 Type of Consultation: Urology Reason for Consultation Urinary tract infection, history of bladder tumor and left ureteral JJ stent Requesting Provider: SHERIF DAMON MD Date/Time of Note DATE: 01/19/19 TIME: 19:21 Subjective Patient continues to have balanitis with the glans penis very red and granular. Also today in the afternoon he developed a blister on the shaft of the penis. He is voiding well and the urine is clear Objective Vitals Vital Signs Date Temp Pulse Resp B/P (MAP) Pulse Ox O2 O2 Flow FiO2 Time Delivery Rate 01/19/19 98.0 77 18 137/88 98 15:47 (104) 01/19/19 Room Air 04:34 01/16/19 2 11:17 Intake and Output 01/18/19 01/18/19 01/19/19 1515:00 23:00 07:00 IntakeIntake Total 720 ml 360 ml OutputOutput Total 450 ml 800 ml BalanceBalance 270 ml -440 ml Exam Patient does have a colostomy. He continues to have balanitis and the glans penis is very red and granular. He does have a blister on the proximal and mid shaft of the penis Results/Medications Result Diagram: 01/19/19 0520 01/19/19 0520 Results 24 hrs Laboratory Tests Test 01/19/19 05:17 01/19/19 05:20 Iron Level 19 L Total Iron Binding Capacity 232 L Percent Iron Saturation 8 L Vitamin B12 Level 267 Folate 8.3 White Blood Count 8.7 # Red Blood Count 2.98 L Hemoglobin 9.4 L Hematocrit 31.0 L Mean Corpuscular Volume 104.0 H Mean Corpuscular Hemoglobin 31.5 Mean Corpuscular Hemoglobin Concent 30.3 L Red Cell Distribution Width 16.8 H Platelet Count 231 Mean Platelet Volume 10.5 H Immature Granulocytes % 0.600 H Neutrophils % 78.1 H Lymphocytes % 9.4 L Monocytes % 9.4 Eosinophils % 1.8 Basophils % 0.7 Nucleated Red Blood Cells % 0.3 H Immature Granulocytes # 0.050 H Neutrophils # 6.8 Lymphocytes # 0.8 Monocytes # 0.8 Eosinophils # 0.2 Basophils # 0.1 Nucleated Red Blood Cells # 0.0 Erythrocyte Sedimentation Rate 10.0 Sodium Level 143 Potassium Level 4.4 Chloride Level 120 H Carbon Dioxide Level 15 L Anion Gap 8 Blood Urea Nitrogen 39 H Creatinine 2.83 H Est Glomerular Filtrat Rate mL/min Glucose Level 91 Calcium Level 8.4 Total Bilirubin 0.3 Direct Bilirubin 0.00 Indirect Bilirubin 0.3 Aspartate Amino Transf (AST/SGOT) 20 Alanine Aminotransferase (ALT/SGPT) 23 Alkaline Phosphatase 52 C-Reactive Protein 5.3 H Total Protein 5.6 L Albumin 2.8 L Globulin 2.80 Albumin/Globulin Ratio 1.00 Home Meds Reported Medications Pantoprazole* (Pantoprazole*) 40 Mg Tablet.dr, 40 MG PO AC BREAKFAST, TAB 01/16/19 Prednisone* (Prednisone*) 5 Mg Tab, 5 MG PO DAILY, TAB 01/16/19 Mycophenolate Mofetil* (Cellcept*) 500 Mg Tablet, 500 MG PO TID, #60 TAB 01/16/19 Atorvastatin* (Atorvastatin*) 40 Mg Tablet, 40 MG PO QHS, #30 TAB 01/16/19 Loperamide Hcl* (Loperamide Hcl*) 2 Mg Cap, 2 MG PO NEEDED, CAP WITH EACH DIARRHEA,PRN 01/16/19 Discontinued Reported Medications Loperamide Hcl* (Imodium*) 2 Mg Capsule, 2 MG PO .WITH EACH DIARRHEA PRN for DIARRHEA, CAP MAX 16 mg/day 04/18/18 Wheat Dextrin (Benefiber) 1 Each Powd.pack, 1 EACH PO QAM 04/18/18 Mycophenolate Mofetil* (Cellcept*) 500 Mg Tablet, 500 MG PO TID, #60 TAB 1 HR BEFORE BREAKFAST 2 HRS AFTER BREAKFAST 1 HR BEFORE OR AFTER DINNER 04/18/18 Pantoprazole* (Protonix*) 40 Mg Tablet.dr, 40 MG PO DAILY, TAB 04/18/18 Prednisone* (Prednisone*) 5 Mg Tab, 5 MG PO DAILY, TAB 12/11/17 Atorvastatin* (Atorvastatin*) 40 Mg Tablet, 40 MG PO QHS, #30 TAB 12/11/17 Medications Current Medications IV Flush (NS 3 ml) 3 ml PER PROTOCOL IV ; Start 01/16/19 at 16:30 Ondansetron HCl (Zofran Inj) 4 mg Q6H PRN IV NAUSEA/VOMITING; Start 01/16/19 at 16:30 Zolpidem Tartrate (Ambien) 5 mg QHS PRN PO .INSOMNIA; Start 01/16/19 at 16:30 Magnesium Hydroxide (Milk Of Mag) 30 ml DAILY PRN PO .CONSTIPATION; Start 01/16/19 at 16:30 Ibuprofen (Motrin) 400 mg Q6H PRN PO MILD PAIN(1-3) OR TEMP>38C; Start 01/16/19 at 16:30 Atorvastatin Calcium (Lipitor) 40 mg QHS PO Last administered on 01/18/19at 20:27; Admin Dose 40 MG; Start 01/16/19 at 21:00 Loperamide HCl (Imodium Cap) 2 mg ONCE PRN PO diarrhea; Start 01/16/19 at 16:30 Mycophenolate Mofetil (Cellcept) 500 mg TID PO Last administered on 01/19/19at 12:15; Admin Dose 500 MG; Start 01/16/19 at 21:00 Clotrimazole (Lotrimin Cr) 1 applic BID TOP Last administered on 01/19/19at 08:28; Admin Dose 1 APPLIC; Start 01/16/19 at 21:00 Vancomycin HCl (Vanco Iv Per Pharmacy) PER PHARMACY DOSING NOTE XX ; Start 01/16/19 at 18:30 Prednisone (Prednisone) 5 mg DAILY PO Last administered on 01/19/19at 08:27; Admin Dose 5 MG; Start 01/17/19 at 14:01 Fluconazole (Diflucan) 100 mg DAILY PO Last administered on 01/19/19at 12:16; Admin Dose 100 MG; Start 01/19/19 at 09:00; Stop 01/26/19 at 08:59 Famotidine (Pepcid) 20 mg HS PO ; Start 01/19/19 at 21:00 Vancomycin/Sodium Chloride 250 ml @ 83.333 mls/ hr Q36H IVPB ; Start 01/19/19 at 22:00 Assessment/Plan Hospital Course (Demo Recall) 88-year-old male presented to the hospital with chills and fever of 103. He does have a history of bladder tumor status post resection and insertion of left ureteral JJ stent. His blood culture did grow gram-positive cocci and his urine did grow the same. The patient is on vancomycin. He is feeling better and he is voiding well. His urine is clear. He complained today of rectal discharge and feeling of gas coming through the rectum. His white count is now normal 8.7. His creatinine has improved and came down to 2.83 from 3.48 He continues to have balanitis and today he developed a blister on the proximal and mid shaft of the penis. The redness on the glans penis and the blister raises the possibility of drug-induced balanitis and blister. He may also have put the urinal against his penile skin and left it for a long time. The urine cytology still pending. Continue the antibiotic, the Lotrimin cream. ALEX PARR MD Jan 19, 2019 19:28
[2019-01-19] MEDS: ATORVASTATIN 40 MG TAB PO SCH (20:26)
[2019-01-19] MEDS ORDERED: FAMOTIDINE 20 MG TAB PO SCH (21:00)
[2019-01-19] MEDS ORDERED: VANCOMYCIN 1.25 GM/NS 250 ML 250 ML IVPB SCH ×2 (22:00)
[2019-01-20 04:19] VITALS: BP 141/71; PULSE 66; RESP 18
--- NOTE | 2019-01-20 08:00 | CONS ---
Assessment/Plan Assessment/Plan Assessment/Plan (Daily) Will try an HC supp but this may not be possible. Would simply observe the intermittent drainage and have the pt come to my office next week. Consultation Date/Type/Reason Admit Date/Time Jan 16, 2019 at 15:46 Date of Consultation: Jan 20, 2019 Type of Consult Colorectal Reason for Consultation Sudden drainage of rectal fluid Date/Time of Note DATE: 01/20/19 TIME: 07:51 Hx of Present Illness The pt is well known to me from prior surgeries and ongoing treatment for peristomal problems. 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 The lask of blood favors diversion over radiation proctitis. He has had 1 other small drainage which ocurred yesterday. No pain, and no blood. Stoma working well. On going skin ulcerations which are healing Constitutional: no complaints Eyes: no complaints Gastrointestinal: no complaints Skin: skin lesions Past Medical History Medical History: cancer (bladder, transitional urethral carcinoma, perianal melanoma), congestive heart failure, coronary artery disease, GI bleed, high ch olesterol, renal disease (nephrolithiasis), other (rheumatoid arthritis, autoimmune bullous disease of the skin) Home Meds Reported Medications Pantoprazole* (Pantoprazole*) 40 Mg Tablet.dr, 40 MG PO AC BREAKFAST, TAB 01/16/19 Prednisone* (Prednisone*) 5 Mg Tab, 5 MG PO DAILY, TAB 01/16/19 Mycophenolate Mofetil* (Cellcept*) 500 Mg Tablet, 500 MG PO TID, #60 TAB 01/16/19 Atorvastatin* (Atorvastatin*) 40 Mg Tablet, 40 MG PO QHS, #30 TAB 01/16/19 Loperamide Hcl* (Loperamide Hcl*) 2 Mg Cap, 2 MG PO NEEDED, CAP WITH EACH DIARRHEA,PRN 01/16/19 Discontinued Reported Medications Loperamide Hcl* (Imodium*) 2 Mg Capsule, 2 MG PO .WITH EACH DIARRHEA PRN for DIARRHEA, CAP MAX 16 mg/day 04/18/18 Wheat Dextrin (Benefiber) 1 Each Powd.pack, 1 EACH PO QAM 04/18/18 Mycophenolate Mofetil* (Cellcept*) 500 Mg Tablet, 500 MG PO TID, #60 TAB 1 HR BEFORE BREAKFAST 2 HRS AFTER BREAKFAST 1 HR BEFORE OR AFTER DINNER 04/18/18 Pantoprazole* (Protonix*) 40 Mg Tablet.dr, 40 MG PO DAILY, TAB 04/18/18 Prednisone* (Prednisone*) 5 Mg Tab, 5 MG PO DAILY, TAB 12/11/17 Atorvastatin* (Atorvastatin*) 40 Mg Tablet, 40 MG PO QHS, #30 TAB 12/11/17 Medications Current Medications IV Flush (NS 3 ml) 3 ml PER PROTOCOL IV ; Start 01/16/19 at 16:30 Ondansetron HCl (Zofran Inj) 4 mg Q6H PRN IV NAUSEA/VOMITING; Start 01/16/19 at 16:30 Zolpidem Tartrate (Ambien) 5 mg QHS PRN PO .INSOMNIA; Start 01/16/19 at 16:30 Magnesium Hydroxide (Milk Of Mag) 30 ml DAILY PRN PO .CONSTIPATION; Start 01/16/19 at 16:30 Ibuprofen (Motrin) 400 mg Q6H PRN PO MILD PAIN(1-3) OR TEMP>38C; Start 01/16/19 at 16:30 Atorvastatin Calcium (Lipitor) 40 mg QHS PO Last administered on 01/19/19at 20:26; Admin Dose 40 MG; Start 01/16/19 at 21:00 Loperamide HCl (Imodium Cap) 2 mg ONCE PRN PO diarrhea; Start 01/16/19 at 16:30 Mycophenolate Mofetil (Cellcept) 500 mg TID PO Last administered on 01/19/19at 20:27; Admin Dose 500 MG; Start 01/16/19 at 21:00 Clotrimazole (Lotrimin Cr) 1 applic BID TOP Last administered on 01/19/19at 20:29; Admin Dose 1 APPLIC; Start 01/16/19 at 21:00 Vancomycin HCl (Vanco Iv Per Pharmacy) PER PHARMACY DOSING NOTE XX ; Start 01/16/19 at 18:30 Prednisone (Prednisone) 5 mg DAILY PO Last administered on 01/19/19at 08:27; Admin Dose 5 MG; Start 01/17/19 at 14:01 Fluconazole (Diflucan) 100 mg DAILY PO Last administered on 01/19/19at 12:16; Admin Dose 100 MG; Start 01/19/19 at 09:00; Stop 01/26/19 at 08:59 Famotidine (Pepcid) 20 mg HS PO Last administered on 01/19/19at 20:27; Admin Dose 20 MG; Start 01/19/19 at 21:00 Vancomycin/Sodium Chloride 250 ml @ 83.333 mls/ hr Q36H IVPB Last administered on 01/19/19at 21:55; Admin Dose 83.333 MLS/HR; Start 01/19/19 at 22:00 Hydrocortisone (Anusol-Hc Supp) 25 mg DAILY [place] ; Start 01/20/19 at 09:00 Allergies: Coded Allergies: acetaminophen (Unverified Allergy, Unknown, 01/16/19) hydrocodone (Unverified Allergy, Unknown, 01/16/19) hydromorphone HCl (Verified Adverse Reaction, Mild, BECAME CRAZY AND MEAN, 01/16/19) Past Surgical History The pt has had both rectal and abdominal surgeries and has an end colostomy and Erika pouch Past Surgical Hx: angioplasty, bowel resection, other (,colostomy) Family History Significant Family History: no pertinent family hx Social History Alcohol Use: none Smoking Status: Former smoker Drug Use: none Exam/Review of Systems Exam Vitals Vital Signs Date Temp Pulse Resp B/P (MAP) Pulse Ox O2 O2 Flow FiO2 Time Delivery Rate 01/20/19 98.3 66 18 141/71 99 Room Air 04:19 (94) 01/16/19 2 11:17 Intake and Output 01/19/19 01/19/19 01/20/19 1515:00 23:00 07:00 IntakeIntake Total 600 ml 720 ml 250 ml OutputOutput Total 300 ml 525 ml 300 ml BalanceBalance 300 ml 195 ml -50 ml Constitutional: alert, oriented, well developed Psych: no complaints Gastrointestinal: soft, nl liver, spleen, other (Healthy stom. Rectal -severly stenotic and unable to pass finger) Results Result Diagram: 01/20/19 0531 01/20/19 0531 Results 24hrs Laboratory Tests Test 01/20/19 05:31 White Blood Count 8.4 Red Blood Count 3.27 L Hemoglobin 10.3 L Hematocrit 34.4 L Mean Corpuscular Volume 105.2 H Mean Corpuscular Hemoglobin 31.5 Mean Corpuscular Hemoglobin Concent 29.9 L Red Cell Distribution Width 17.0 H Platelet Count 261 Mean Platelet Volume 10.9 H Immature Granulocytes % 0.700 H Neutrophils % 76.5 Lymphocytes % 10.6 L Monocytes % 9.1 Eosinophils % 2.5 Basophils % 0.6 Nucleated Red Blood Cells % 0.4 H Immature Granulocytes # 0.060 H Neutrophils # 6.4 Lymphocytes # 0.9 Monocytes # 0.8 Eosinophils # 0.2 Basophils # 0.1 Nucleated Red Blood Cells # 0.0 Sodium Level 141 Potassium Level 4.6 Chloride Level 118 H Carbon Dioxide Level 16 L Anion Gap 7 Blood Urea Nitrogen 35 H Creatinine 2.82 H Est Glomerular Filtrat Rate mL/min Glucose Level 93 Calcium Level 8.6 Total Bilirubin 0.4 Direct Bilirubin 0.00 Indirect Bilirubin 0.4 Aspartate Amino Transf (AST/SGOT) 20 Alanine Aminotransferase (ALT/SGPT) 21 Alkaline Phosphatase 59 Total Protein 6.0 L Albumin 3.0 L Globulin 3.00 Albumin/Globulin Ratio 1.00 Medications Medication Current Medications IV Flush (NS 3 ml) 3 ml PER PROTOCOL IV ; Start 01/16/19 at 16:30 Ondansetron HCl (Zofran Inj) 4 mg Q6H PRN IV NAUSEA/VOMITING; Start 01/16/19 at 16:30 Zolpidem Tartrate (Ambien) 5 mg QHS PRN PO .INSOMNIA; Start 01/16/19 at 16:30 Magnesium Hydroxide (Milk Of Mag) 30 ml DAILY PRN PO .CONSTIPATION; Start 01/16/19 at 16:30 Ibuprofen (Motrin) 400 mg Q6H PRN PO MILD PAIN(1-3) OR TEMP>38C; Start 01/16/19 at 16:30 Atorvastatin Calcium (Lipitor) 40 mg QHS PO Last administered on 01/19/19at 20:26; Admin Dose 40 MG; Start 01/16/19 at 21:00 Loperamide HCl (Imodium Cap) 2 mg ONCE PRN PO diarrhea; Start 01/16/19 at 16:30 Mycophenolate Mofetil (Cellcept) 500 mg TID PO Last administered on 01/19/19at 20:27; Admin Dose 500 MG; Start 01/16/19 at 21:00 Clotrimazole (Lotrimin Cr) 1 applic BID TOP Last administered on 01/19/19at 20:29; Admin Dose 1 APPLIC; Start 01/16/19 at 21:00 Vancomycin HCl (Vanco Iv Per Pharmacy) PER PHARMACY DOSING NOTE XX ; Start 01/16/19 at 18:30 Prednisone (Prednisone) 5 mg DAILY PO Last administered on 01/19/19 08:27; Admin Dose 5 MG; Start 01/17/19 at 14:01 Fluconazole (Diflucan) 100 mg DAILY PO Last administered on 01/19/19at 12:16; Admin Dose 100 MG; Start 01/19/19 at 09:00; Stop 01/26/19 at 08:59 Famotidine (Pepcid) 20 mg HS PO Last administered on 01/19/19at 20:27; Admin Dose 20 MG; Start 01/19/19 at 21:00 Vancomycin/Sodium Chloride 250 ml @ 83.333 mls/ hr Q36H IVPB Last administered on 01/19/19at 21:55; Admin Dose 83.333 MLS/HR; Start 01/19/19 at 22:00 Hydrocortisone (Anusol-Hc Supp) 25 mg DAILY [place] ; Start 01/20/19 at 09:00 VINCENZO DAVIES MD Jan 20, 2019 08:00
[2019-01-20] MEDS: MYCOPHENOLATE 250 MG CAP PO SCH ×2 (08:14→12:01)
[2019-01-20] MEDS: predniSONE 5 MG TAB PO SCH (08:14)
[2019-01-20 08:15] VITALS: PULSE 69; RESP 22
[2019-01-20] MEDS: FLUCONAZOLE 100 MG TAB PO SCH (08:15)
[2019-01-20] MEDS: CLOTRIMAZOLE 1% 30 GM CR TOP SCH (08:16)
[2019-01-20 08:21] VITALS: BP 162/105
--- NOTE | 2019-01-20 08:52 | PN ---
Date/Time of Note Date/Time of Note DATE: 01/20/19 TIME: 08:46 Assessment/Plan VTE Prophylaxis Risk score (from N[facility])>0 risk: 5 [place] [facility] [place] contraindicated: low risk/ambulating Pharmacological prophylaxis: NA/contraindicated Pharm contraindication: bleeding Lines/Catheters IV [facility]ter Type (from [facility] Peripheral IV Urinary Cath still in place: No Assessment/Plan Result Diagram: 01/20/19 0531 01/20/19 0531 Results 24hrs Laboratory Tests Test 01/20/19 05:31 White Blood Count 8.4 Red Blood Count 3.27 L Hemoglobin 10.3 L Hematocrit 34.4 L Mean Corpuscular Volume 105.2 H Mean Corpuscular Hemoglobin 31.5 Mean Corpuscular Hemoglobin Concent 29.9 L Red Cell Distribution Width 17.0 H Platelet Count 261 Mean Platelet Volume 10.9 H Immature Granulocytes % 0.700 H Neutrophils % 76.5 Lymphocytes % 10.6 L Monocytes % 9.1 Eosinophils % 2.5 Basophils % 0.6 Nucleated Red Blood Cells % 0.4 H Immature Granulocytes # 0.060 H Neutrophils # 6.4 Lymphocytes # 0.9 Monocytes # 0.8 Eosinophils # 0.2 Basophils # 0.1 Nucleated Red Blood Cells # 0.0 Sodium Level 141 Potassium Level 4.6 Chloride Level 118 H Carbon Dioxide Level 16 L Anion Gap 7 Blood Urea Nitrogen 35 H Creatinine 2.82 H Est Glomerular Filtrat Rate mL/min Glucose Level 93 Calcium Level 8.6 Total Bilirubin 0.4 Direct Bilirubin 0.00 Indirect Bilirubin 0.4 Aspartate Amino Transf (AST/SGOT) 20 Alanine Aminotransferase (ALT/SGPT) 21 Alkaline Phosphatase 59 Total Protein 6.0 L Albumin 3.0 L Globulin 3.00 Albumin/Globulin Ratio 1.00 Subjective 24 Hr Interval Summary Free Text/Dictation sepsis: one out of two pos blood cult and low col count urine cult staph neg, change to po meds. wbc back to nl, no temp, no other sx. ckd sable vesicular skin rash sable on cell cept balanitis, rx in place rectal discharge, resolved,?source of fever abd pelvic ct fluid collection, to repeat cont to be up as able alert, clear lungs, hr, tele ok abd soft, non tender, ostomy brown stool penis w balanitis, had a blister on shaft this am, now flat non tender, poss friction?? no sig discharge from rectum Genitourinary: discharge Exam/Review of Systems Exam Vitals Vital Signs Date Temp Pulse Resp B/P (MAP) Pulse Ox O2 O2 Flow FiO2 Time Delivery Rate 01/20/19 162/105 08:21 (124) 01/20/19 97.8 69 22 96 Room Air 08:15 01/16/19 2 11:17 Intake and Output 01/19/19 01/19/19 01/20/19 1414:59 22:59 06:59 IntakeIntake Total 600 ml 720 ml 250 ml OutputOutput Total 300 ml 525 ml 300 ml BalanceBalance 300 ml 195 ml -50 ml Results Results 24hrs Laboratory Tests Test 01/20/19 05:31 White Blood Count 8.4 Red Blood Count 3.27 L Hemoglobin 10.3 L Hematocrit 34.4 L Mean Corpuscular Volume 105.2 H Mean Corpuscular Hemoglobin 31.5 Mean Corpuscular Hemoglobin Concent 29.9 L Red Cell Distribution Width 17.0 H Platelet Count 261 Mean Platelet Volume 10.9 H Immature Granulocytes % 0.700 H Neutrophils % 76.5 Lymphocytes % 10.6 L Monocytes % 9.1 Eosinophils % 2.5 Basophils % 0.6 Nucleated Red Blood Cells % 0.4 H Immature Granulocytes # 0.060 H Neutrophils # 6.4 Lymphocytes # 0.9 Monocytes # 0.8 Eosinophils # 0.2 Basophils # 0.1 Nucleated Red Blood Cells # 0.0 Sodium Level 141 Potassium Level 4.6 Chloride Level 118 H Carbon Dioxide Level 16 L Anion Gap 7 Blood Urea Nitrogen 35 H Creatinine 2.82 H Est Glomerular Filtrat Rate mL/min Glucose Level 93 Calcium Level 8.6 Total Bilirubin 0.4 Direct Bilirubin 0.00 Indirect Bilirubin 0.4 Aspartate Amino Transf (AST/SGOT) 20 Alanine Aminotransferase (ALT/SGPT) 21 Alkaline Phosphatase 59 Total Protein 6.0 L Albumin 3.0 L Globulin 3.00 Albumin/Globulin Ratio 1.00 Medications Medication Current Medications IV Flush (NS 3 ml) 3 ml PER PROTOCOL IV ; Start 01/16/19 at 16:30 Ondansetron HCl (Zofran Inj) 4 mg Q6H PRN IV NAUSEA/VOMITING; Start 01/16/19 at 16:30 Zolpidem Tartrate (Ambien) 5 mg QHS PRN PO .INSOMNIA; Start 01/16/19 at 16:30 Magnesium Hydroxide (Milk Of Mag) 30 ml DAILY PRN PO .CONSTIPATION; Start 01/16/19 at 16:30 Ibuprofen (Motrin) 400 mg Q6H PRN PO MILD PAIN(1-3) OR TEMP>38C; Start 01/16/19 at 16:30 Atorvastatin Calcium (Lipitor) 40 mg QHS PO Last administered on 01/19/19at 20:26; Admin Dose 40 MG; Start 01/16/19 at 21:00 Loperamide HCl (Imodium Cap) 2 mg ONCE PRN PO diarrhea; Start 01/16/19 at 16:30 Mycophenolate Mofetil (Cellcept) 500 mg TID PO Last administered on 01/20/19 08:14; Admin Dose 500 MG; Start 01/16/19 at 21:00 Clotrimazole (Lotrimin Cr) 1 applic BID TOP Last administered on 01/20/19 08:16; Admin Dose 1 APPLIC; Start 01/16/19 at 21:00 Prednisone (Prednisone) 5 mg DAILY PO Last administered on 01/20/19 08:14; Admin Dose 5 MG; Start 01/17/19 at 14:01 Fluconazole (Diflucan) 100 mg DAILY PO Last administered on 01/20/19 08:15; Admin Dose 100 MG; Start 01/19/19 at 09:00; Stop 01/26/19 at 08:59 Famotidine (Pepcid) 20 mg HS PO Last administered on 01/19/19at 20:27; Admin Dose 20 MG; Start 01/19/19 at 21:00 Hydrocortisone (Anusol-Hc Supp) 25 mg ONCE ONCE [place] ; Start 01/20/19 at 09:00; Stop 01/20/19 at 09:01 MAIDA WATERS MD Jan 20, 2019 08:52
[2019-01-20] MEDS ORDERED: HYDROCORTISONE 25 MG SUPP PR ONE (09:00)
[2019-01-20] MEDS ORDERED: BARIUM SULF 2% 450 ML BTL (BERRY SMOOTHIE) PO ONE (09:00)
[2019-01-20] MEDS ORDERED: HYDROCORTISONE 25 MG SUPP PR SCH (09:00)
[2019-01-20 09:11] VITALS: BP 155/81; PULSE 80
[2019-01-20 11:41] VITALS: BP 170/80; PULSE 61
[2019-01-20 15:34] VITALS: BP 170/87; PULSE 52; RESP 22
[2019-01-20] MEDS ORDERED: CLO15CR1 TOP (17:27)
[2019-01-20] MEDS ORDERED: CIPR500T4 PO (17:27)
--- NOTE | 2019-01-20 17:34 | PN ---
Date/Time of Note Date/Time of Note DATE: 01/20/19 TIME: 17:32 Assessment/Plan VTE Prophylaxis Risk score (from [facility] [place] risk: 5 SCD applied (from [facility] [place] No SCD contraindicated: low risk/ambulating Pharmacological prophylaxis: NA/contraindicated, other Pharm contraindication: bleeding (being discharged) Lines/Catheters IV Catheter Type (from [facility]): Peripheral IV Urinary Cath still in place: No Assessment/Plan Result Diagram: 01/20/19 0531 01/20/19 0531 Results 24hrs Laboratory Tests Test 01/20/19 05:31 White Blood Count 8.4 Red Blood Count 3.27 L Hemoglobin 10.3 L Hematocrit 34.4 L Mean Corpuscular Volume 105.2 H Mean Corpuscular Hemoglobin 31.5 Mean Corpuscular Hemoglobin Concent 29.9 L Red Cell Distribution Width 17.0 H Platelet Count 261 Mean Platelet Volume 10.9 H Immature Granulocytes % 0.700 H Neutrophils % 76.5 Lymphocytes % 10.6 L Monocytes % 9.1 Eosinophils % 2.5 Basophils % 0.6 Nucleated Red Blood Cells % 0.4 H Immature Granulocytes # 0.060 H Neutrophils # 6.4 Lymphocytes # 0.9 Monocytes # 0.8 Eosinophils # 0.2 Basophils # 0.1 Nucleated Red Blood Cells # 0.0 Sodium Level 141 Potassium Level 4.6 Chloride Level 118 H Carbon Dioxide Level 16 L Anion Gap 7 Blood Urea Nitrogen 35 H Creatinine 2.82 H Est Glomerular Filtrat Rate mL/min Glucose Level 93 Calcium Level 8.6 Total Bilirubin 0.4 Direct Bilirubin 0.00 Indirect Bilirubin 0.4 Aspartate Amino Transf (AST/SGOT) 20 Alanine Aminotransferase (ALT/SGPT) 21 Alkaline Phosphatase 59 Total Protein 6.0 L Albumin 3.0 L Globulin 3.00 Albumin/Globulin Ratio 1.00 Subjective 24 Hr Interval Summary Free Text/Dictation ct scan without new findings, has fluid primarily in hamstring and trochanter mallory, with some hamstring soreness will discharge to resume usual meds, lotrimin and cipro will be escribed Exam/Review of Systems Exam Vitals Vital Signs Date Temp Pulse Resp B/P (MAP) Pulse Ox O2 O2 Flow FiO2 Time Delivery Rate 01/20/19 98.0 52 22 170/87 96 Room Air 15:34 (114) 01/16/19 2 11:17 Intake and Output 7/16/19 7/16/19 7/17/19 1515:00 23:00 07:00 IntakeIntake Total 600 ml 720 ml 250 ml OutputOutput Total 300 ml 525 ml 300 ml BalanceBalance 300 ml 195 ml -50 ml Results Results 24hrs Laboratory Tests Test 01/20/19 05:31 White Blood Count 8.4 Red Blood Count 3.27 L Hemoglobin 10.3 L Hematocrit 34.4 L Mean Corpuscular Volume 105.2 H Mean Corpuscular Hemoglobin 31.5 Mean Corpuscular Hemoglobin Concent 29.9 L Red Cell Distribution Width 17.0 H Platelet Count 261 Mean Platelet Volume 10.9 H Immature Granulocytes % 0.700 H Neutrophils % 76.5 Lymphocytes % 10.6 L Monocytes % 9.1 Eosinophils % 2.5 Basophils % 0.6 Nucleated Red Blood Cells % 0.4 H Immature Granulocytes # 0.060 H Neutrophils # 6.4 Lymphocytes # 0.9 Monocytes # 0.8 Eosinophils # 0.2 Basophils # 0.1 Nucleated Red Blood Cells # 0.0 Sodium Level 141 Potassium Level 4.6 Chloride Level 118 H Carbon Dioxide Level 16 L Anion Gap 7 Blood Urea Nitrogen 35 H Creatinine 2.82 H Est Glomerular Filtrat Rate mL/min Glucose Level 93 Calcium Level 8.6 Total Bilirubin 0.4 Direct Bilirubin 0.00 Indirect Bilirubin 0.4 Aspartate Amino Transf (AST/SGOT) 20 Alanine Aminotransferase (ALT/SGPT) 21 Alkaline Phosphatase 59 Total Protein 6.0 L Albumin 3.0 L Globulin 3.00 Albumin/Globulin Ratio 1.00 Medications Medication Current Medications IV Flush (NS 3 ml) 3 ml PER PROTOCOL IV ; Start 01/16/19 at 16:30 Ondansetron HCl (Zofran Inj) 4 mg Q6H PRN IV NAUSEA/VOMITING; Start 01/16/19 at 16:30 Zolpidem Tartrate (Ambien) 5 mg QHS PRN PO .INSOMNIA; Start 01/16/19 at 16:30 Magnesium Hydroxide (Milk Of Mag) 30 ml DAILY PRN PO .CONSTIPATION; Start 01/16/19 at 16:30 Ibuprofen (Motrin) 400 mg Q6H PRN PO MILD PAIN(1-3) OR TEMP>38C; Start 01/16/19 at 16:30 Atorvastatin Calcium (Lipitor) 40 mg QHS PO Last administered on 01/19/19 20:26; Admin Dose 40 MG; Start 01/16/19 at 21:00 Loperamide HCl (Imodium Cap) 2 mg ONCE PRN PO diarrhea; Start 01/16/19 at 16:30 Mycophenolate Mofetil (Cellcept) 500 mg TID PO Last administered on 01/20/19at 12:01; Admin Dose 500 MG; Start 01/16/19 at 21:00 Clotrimazole (Lotrimin Cr) 1 applic BID TOP Last administered on 01/20/19at 08:16; Admin Dose 1 APPLIC; Start 01/16/19 at 21:00 Prednisone (Prednisone) 5 mg DAILY PO Last administered on 01/20/19 08:14; Admin Dose 5 MG; Start 01/17/19 at 14:01 Fluconazole (Diflucan) 100 mg DAILY PO Last administered on 01/20/19at 08:15; Admin Dose 100 MG; Start 01/19/19 at 09:00; Stop 01/26/19 at 08:59 Famotidine (Pepcid) 20 mg HS PO Last administered on 01/19/19at 20:27; Admin Dose 20 MG; Start 01/19/19 at 21:00 Ciprofloxacin (Cipro) 500 mg DAILY@06 PO ; Start 01/21/19 at 06:00 MAIDA WATERS MD Jan 20, 2019 17:34
--- NOTE | 2019-01-21 03:23 | DS ---
DATE OF ADMISSION: 01/16/2019 DATE OF DISCHARGE: 01/20/2019 CHIEF COMPLAINT: Sepsis. FINAL DIAGNOSES: 1. Fever and chills, leukocytosis, etiology unclear, presumably secondary to retained rectal product s. 2. Chronic renal disease. 3. Hypertension. 4. 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 5. Chronic vesicular rash, somewhat improved. 6. Balanitis, treatment underway. 7. One out of two positive blood cultures for a coagulase negative staph and low colony count, coagu lase negative urinary tract infection. 8. Remote history of rectal melanoma with AP resection and diverting colostomy. 9. History of GI bleed secondary to diverticulitis recently, resolved 10. Chronic anemia with iron deficiency, complicated by renal disease. DISCUSSION : Mr. Faust is an 88-year-old man with multiple medical problems, as noted. He was in co s usual state of health until the day of admission, when while out for breakfast, he developed a sudd en shakiness that he could not control as well as sweating, brought to the emergency room, found to h ave leukocytosis without focal abnormality. The patient states that he has been having some increasi ng rectal discharge and on the day of admission had a large amount of rectal discharge. CAT scans re vealed only fluid in the ischial area. White count returned to normal with vancomycin. Blood cultur es as noted above. The patient is up and ambulatory, eating, voiding and feeling well. His balaniti s is under control with Lotrimin cream. He has been switched to oral Cipro, which he will continue o n a renal dose for 5 days. He will be seen in the office within the next 5 days. He is instructed t o return to the emergency room for recurrent fever, chills or shaking. Repeat pelvic CT reveals only the fluid as noted before, but now clearly associated with a probable hamstring injury and [place] bursitis. At the time of discharge, condition is fair. DISCHARGE LABORATORY TESTS: White count 8400, hemoglobin 10.3, platelet count is 170,000. Chemistri es are fine. His creatinine is 2.8, which is about average for him. BUN of 35. B12 is 267. Folic acid is 8.3. Dictated By: MAIDA WATERS MD, SR/EDUARDO Conf#: [id number] DID#: [id number]
[2019-01-21] MEDS ORDERED: CIPROFLOXACIN 500 MG TAB PO SCH (06:00)
== END 2019-01-20 19:36 | disposition home health service (06) | DRG 872 ==
LOC: E/R 10:33 → 6WM 15:46 → EDBEDREQ 15:48
PROVIDERS: ADMIT Internal Medicine; ATTEND Internal Medicine
DX: A41.9 Sepsis, unspecified organism (principal); N13.1 Hydronephrosis with ureteral stricture, not elsewhere classified; L40.50 Arthropathic psoriasis, unspecified; N18.3 Chronic kidney disease, stage 3 (moderate); E78.5 Hyperlipidemia, unspecified; D50.9 Iron deficiency anemia, unspecified; I25.10 Atherosclerotic heart disease of native coronary artery without angina pectoris; I12.9 Hypertensive chronic kidney disease with stage 1 through stage 4 chronic kidney disease, or unspecified chronic kidney disease; N48.1 Balanitis; B95.8 Unspecified staphylococcus as the cause of diseases classified elsewhere; R65.20 Severe sepsis without septic shock; Z87.891 Personal history of nicotine dependence; Z93.3 Colostomy status; Z85.048 Personal history of other malignant neoplasm of rectum, rectosigmoid junction, and anus; Z85.51 Personal history of malignant neoplasm of bladder
CPT/HCPCS: 36415; 71045; 72192; 74176; 80053; 80202; 81001; 82150; 82607; 82746; 83540; 83605; 83690; 84484; 85025; 85610; 85651; 85730; 86140; 87086; 87400; 88104; 93005; 96374; 96375; 97161; 97167; J0692; J3370; J7030; J7050; J7512; J7517